=== PATIENT | female | born 1945 | race Caucasian/White ===

== ENCOUNTER 2023-05-25 00:20 | Emergency (ER) | payer OTHER, SELFPAY ==
[2023-05-25 00:21] VITALS: BMI 21.2
[2023-05-25 00:22] VITALS: BP 178/118
--- NOTE | 2023-05-25 00:30 | ED.GENMED ---
History of Present Illness
General
Chief Complaint: Chest Pain
Time Seen by Provider: 05/25/23 00:29
Travel History
Have you had any contact with someone who has COVID-19?: No
Do you have any symptoms of coronavirus? Fever > 100 degrees, chills, cough, shortness of breath, sore throat, loss of taste or smell, muscle aches, or headache?: No
History of Present Illness
History of Present Illness:
HPI: Chest pain ongoing for the past 3 to 4 days. Of note she did have a CBD gummy onset about 7 days ago and has also tried ZzzQuil 7 days ago. She did stop these over the last couple of days but her symptoms persisted. Her symptoms include
epigastric discomfort, nausea, severe fatigue to the point that she was sleeping 'all the time'. She has maybe some degree of shortness of breath.
EXAM:
GENERAL: Well appearing in no distress however she does appear somewhat generally weak
HEENT: Dry oral mucosa
CARDIOVASCULAR: No murmurs, normal heart rate and rhythm, No chest wall tenderness
PULMONARY: No respiratory distress, breath sounds are clear and equal
ABDOMEN: Soft with no peritoneal signs, no tenderness
NEUROLOGIC: Fair strength all extremities, no coordination deficits
PSYCHIATRIC: Appropriate mental status, normal insight and judgement
EXTREMITIES: Nontender, no edema, moves all extremities equally
SKIN: No rash, no lesions
ED COURSE:
12:30 AM: I initially evaluated patient
NUMBER AND COMPLEXITY OF PROBLEMS ADDRESSED AT THE ENCOUNTER
� Chronic conditions affecting care: Hypothyroidism, History of mitral valve prolapse, depression
� Acute Exacerbation and/or Progression of Chronic Illness: This is an acute problem
� Differential Diagnosis includes: GERD, anxiety, medication reaction, hypothyroidism, very low suspicion for ACS
AMOUNT AND/OR COMPLEXITY OF DATA TO BE REVIEWED AND ANALYZED
� I performed an independent evaluation of and my interpretation is:
EKG: Sinus 76, left axis deviation, LVH, no old EKG to compare
CT:
X-rays:
Laboratory Studies: White count and hemoglobin are both normal, troponin normal at 0.013
Other:
� Review of other/old records: I reviewed notes by Dr. Geller when she is being evaluated for sclerotherapy in 2014
� Clinical information was obtained by an independent historian: I spoke to the at bedside
� Prescriptions/Medications Considered but not given:
� Further testing considered but not performed:
RISK OF COMPLICATIONS AND/OR MORBIDITY OR MORTALITY OF PATIENT MANAGEMENT
� Social determinants of health affecting care: Lives at home
� Discussion with other providers:
� Escalation of care including admission/observation vs risk of discharge considered: The patient did appear somewhat dehydrated upon arrival and was given IV fluids. CBC is normal. EKG is also unremarkable. She has multiple
complaints. The patient reports only minimal if any improvement however she appears very comfortable on reassessment at 2:20 AM. She does keep talking about history of mitral valve prolapse but does not have a deck supervisor. I have given her
contact information for local deck supervisor.
Phy Exam
Physical Exam
Physical Exam:
See HPI
Scores
Heart Score for Chest Pain Patients
STEMI patient?: Not applicable
Course
Orders/Labs/Results
Orders:
Orders
05/25/23 00:28
Electrocardiogram (*1) Urgent
Reason for Study: Shortness of Breath
EKG- Treatment ONCE
05/25/23 00:43
CMP [Comprehensive Metabolic Panel] Urgent
Complete Blood Count/With Diff Urgent
Free T4 Urgent
Lipase Urgent
TSH Reflex To Free T4 Urgent
Troponin I Urgent
05/25/23 00:49
0.9% Sodium Chloride 1000 ml [Nss] 1,000 ml IV BOLUS
Famotidine [Pepcid] 20 mg IV NOW STA
Ondansetron Injectable [Zofran] 4 mg IV NOW STA
Abnormal Lab Results
05/25/23
00:43
MCH 32.4 H pg
(27.0-31.0)
Monocytes % 10.0 H %
(1.7-9.3)
BUN 23 H mg/dl
(7-17)
Glucose 125 H mg/dl
(70-99)
TSH (Reflex) 6.66 H uIU/ml
(0.47-4.68)
05/25/23 00:43
05/25/23 00:43
Vital Signs
Initial and Last Documented VS:
Initial Vital Signs
Temp Pulse Resp BP Pulse Ox
97.5 F 82 18 178/118 100
05/25/23 00:22 05/25/23 00:22 05/25/23 00:22 05/25/23 00:22 05/25/23 00:22
Last Documented Vital Signs
Temp Pulse Resp BP Pulse Ox
97.5 F 63 9 138/77 97
05/25/23 00:22 05/25/23 01:45 05/25/23 01:45 05/25/23 02:00 05/25/23 01:45
*Critical Care Note
Total Time (30-74mins, 75-104mins- exclusive of procedures): Not Applicable
ED Attending Note
-
Portions of this chart may have been created with voice recognition software.� Occasional wrong word or��sound alike� substitutions may have occurred due to the inherent limitations of voice recognition software.
Discharge Plan
Departure
Patient Disposition: Home (Routine Discharge)
Date of Disposition: 05/25/23
Time of Disposition: :20
Patient with high blood pressure during this ER visit?: Yes
Discharge Problem:
Abdominal pain, epigastric
Instructions: Generalized Weakness (DC), Chest Pain CBC Follow Up
Prescriptions:
No Action
venlafaxine [Effexor] 75 MG tablet
225 mg PO DAILY
Patient Comments:
taken at bedtime
Referrals:
Lex Ni DO [Family Provider] -
Wild Calloway MD [Active] - Follow up in 2-3 days
Activity Restrictions/Additional Instructions:
I recommend a 2-week course of [id number] omeprazole. Your basic blood counts were normal. Your TSH level was high at 6.66 indicating low thyroid levels. I recommend you follow-up your primary care doctor. Given the chest discomfort I do
recommend you also follow-up with a deck supervisor they should be contacting you for follow-up. Return here if worse.
Interventions
Interventions:
*Risk Screen - Suicide Last Done: 05/25/23 00:35
*General Assessment Last Done: 05/25/23 01:47
*Neglect/Abuse Screening Last Done: 05/25/23 00:35
ED- Fall Risk Assessment Last Done: 05/25/23 01:50
*ED COVID-19 Vaccine History Last Done: 05/25/23 01:47
ED- Cardiac Assessment Last Done: 05/25/23 01:47
[2023-05-25 00:47] VITALS: BP 135/80
[2023-05-25 00:50] LABS: % Basophils 0.6 % (0-2); % Eosinophils 2.3 % (0-6); % Immature Granulocytes 0.4 % (0-0.5); % Lymphocytes 33.7 % (20.5-51.1); Absolute Eosinophils 0.1 10^3/uL (0-0.7); Absolute Lymphocytes 1.6 10^3/uL (1.2-3.4); Absolute Monocytes 0.5 10^3/uL (0.1-0.6); Absolute Neutrophils 2.6 10^3/uL (1.4-6.5); Hematocrit 40.8 % (37.0-47.0); Hemoglobin 14.3 g/dL (12.0-16.0); Mean Corpuscular Hgb 32.4 pg (27.0-31.0); Mean Corpuscular Volume 92.3 fL (81.0-99.0); Mean Platelet Volume 10.1 fL (7.4-10.4); Nucleated Red Blood Cells % 0 %; Platelet Count 198 10^3/uL (130-400); Red Blood Cell Count 4.42 10^6/uL (4.20-5.40); Red Cell Dist. Width 12.2 % (11.5-14.5); White Blood Cell Count 4.8 10^3/uL (4.8-10.8)
[2023-05-25 01:00] VITALS: BP 140/79
[2023-05-25] MEDS: PEPCID 20 MG IV (01:03)
[2023-05-25] MEDS: ZOFRAN 4 MG IV (01:06)
[2023-05-25] MEDS: NSS 1000 IV (01:07)
[2023-05-25 01:16] LABS: Troponin I 0.013 ng/ml
[2023-05-25 01:27] LABS: ALT (SGPT) 18 U/L (0-35); AST (SGOT) 30 U/L (14-36); Albumin 4.4 g/dl (3.5-5.0); Alkaline Phosphatase 58 U/L (38-126); Blood Urea Nitrogen 23 mg/dl (7-17); Calcium 9.1 mg/dl (8.4-10.2); Carbon Dioxide 27 mmol/L (22-30); Chloride 104 mmol/L (98-107); Glucose 125 mg/dl (70-99); Lipase 126 U/L (23-300); Potassium 4.1 mmol/L (3.5-5.1); Sodium 137 mmol/L (135-145); Total Bilirubin 0.8 mg/dl (0.2-1.3); eGFR > 60.00
[2023-05-25 02:00] VITALS: BP 138/77
[2023-05-25 02:03] LABS: TSH Reflex To Free T4 6.66 uIU/ml (0.47-4.68)
[2023-05-25 02:31] LABS: Free T4 1.06 ng/dl (0.78-2.19)
[2023-05-25 02:33] VITALS: BP 138/77
== END 2023-05-25 02:34 | disposition home or self-care (01) ==
LOC: EMR 00:20
PROVIDERS: Emergency Medicine; EMERGENCY PHYSICIAN Emergency Medicine; FAMILY PHYSICIAN Internal Medicine
DX: R10.13 Epigastric pain (principal); R11.0 Nausea; R53.83 Other fatigue; R06.02 Shortness of breath; R53.1 Weakness; R03.0 Elevated blood-pressure reading, without diagnosis of hypertension; E86.0 Dehydration; E03.9 Hypothyroidism, unspecified; I34.1 Nonrheumatic mitral (valve) prolapse; F32.A Depression, unspecified; Z88.0 Allergy status to penicillin
CPT/HCPCS: 99284; 96374; 96375; 96361; 80053; 83690; 84439; 84443; 84484; 85025; 93005

== ENCOUNTER → 2023-09-21 06:43 | Outpatient (REF) | payer OTHER, SELFPAY | LOC: RAD 06:43 | PROVIDERS: ATTENDING PHYSICIAN Internal Medicine | DX: E04.0 Nontoxic diffuse goiter (principal); E04.1 Nontoxic single thyroid nodule | CPT/HCPCS: 76536 ==

== ENCOUNTER → 2024-01-13 11:51 | Outpatient (REF) | payer OTHER, SELFPAY | LOC: HWWDC 11:51 | PROVIDERS: ATTENDING PHYSICIAN Internal Medicine | DX: Z12.31 Encounter for screening mammogram for malignant neoplasm of breast (principal) | CPT/HCPCS: 77063; 77067 ==